=== PATIENT | female | born 1985 | race Caucasian/White ===

== ENCOUNTER 2018-12-31 15:19 | Emergency (ER) | payer BC ==
[2018-12-31 20:49] VITALS: BP 108/67; PULSE 103; RESP 20; TEMP 98.1; O2SAT 98
== END 2018-12-31 16:40 | disposition home or self-care (01) ==
LOC: H.EROB2 15:19
DX: O36.8131 Decreased fetal movements, third trimester, fetus 1 (principal); Z3A.29 29 weeks gestation of pregnancy